=== PATIENT | female | born 1995 | race African-American/Black ===

== ENCOUNTER 2017-09-16 17:42 | Emergency (ER) | payer OTHER ==
[~2017-09-16] VITALS: Ht 165.1 cm; Wt 70.2 kg
[2017-09-16 17:58] VITALS: TEMP 36.7; Ht 165.1 cm; Wt 70.2 kg
[2017-09-16] MEDS ORDERED: SODIUM CHLORIDE 0.9% 1000ML 1,000 ML IV ONE (19:24)
[2017-09-16] MEDS ORDERED: SODIUM CHLORIDE 0.9% 1000ML 1,000 ML IV STA (19:24)
[2017-09-16] MEDS ORDERED: LEVO-95 PO (20:18)
[2017-09-16] MEDS ORDERED: TERB250T51 PO (20:18)
[2017-09-16 20:19] LABS: BASO % 0.4 %; BASO ABS # 0.02 K/uL (0-0.2); EOS % 3.1 %; EOS ABS # 0.15 K/uL (0-0.5); HEMOGLOBIN 13.7 g/dL (12.0-16.0); IG# 0.01 K/uL (0.00-0.02); LYMPH % 35.6 %; LYMPH ABS # 1.72 K/uL (1.2-3.4); MEAN CELL VOLUME 90.3 fL (80-100); MEAN CORPUSCULAR HEMOGLOBIN 29.5 pg (25-34); MEAN CORPUSCULAR HGB CONC 32.6 g/dl (32-36); MEAN PLATELET VOLUME 9.8 fL (7.4-10.4); MONO % 6.6 %; MONO ABS # 0.32 K/uL (0.11-0.59); NEUT % 54.1 %; NEUT ABS # 2.61 K/uL (1.4-6.5); PLATELET COUNT 222 K/uL (130-400); RED CELL DISTRIBUTION WIDTH CV 13.3 % (11.5-14.5); RED CELL DISTRIBUTION WIDTH SD 43.4 fL (36.4-46.3); WHITE BLOOD COUNT 4.83 K/uL (4.8-10.8)
[2017-09-16 20:39] LABS: ALBUMIN 3.9 gm/dl (3.4-5.0); ALT/SGPT 20 U/L (12-78); BLOOD UREA NITROGEN 8 mg/dl (7-18); CALCIUM 9.3 mg/dl (8.5-10.1); CARBON DIOXIDE 27 mmol/L (21-32); CREATININE 0.85 mg/dl (0.60-1.20); GLUCOSE 82 mg/dl (70-99); LIPASE 183 U/L (73-393); POTASSIUM 3.9 mmol/L (3.5-5.1); SODIUM 138 mmol/L (136-145)
[2017-09-16 20:42] LABS: ALKALINE PHOSPHATASE 70 U/L (45-117); AST/SGOT 17 U/L (15-37); TOTAL PROTEIN 8.1 gm/dl (6.4-8.2)
[2017-09-16 21:40] VITALS: BP 110/76; PULSE 62; O2SAT 98
--- NOTE | 2017-09-16 21:46 | EMERGENCY ROOM VISIT NOTE ---
History Report prepared by Yessy: Fe Osborne Under the Supervision of: Dr. Rell La M.D. First contact with patient: 19:12 Chief Complaint: VAGINAL BLEEDING Stated Complaint: EXTREMELY HEAVY BLEEDING FROM PERIOD History of Present Illness The patient is a 22 year old female who presents to the Emergency Room with complaints of persistent heavy vaginal bleeding starting 3 days ago. The patient is on LoSeasonique. She has been having breakthrough bleeding for the past 2-3 weeks. Her period week started 3 days ago and she has been having very heavy bleeding since. She is using 1 pad every 1-2 hours. She called her accounting office manager and was sent to the ED over concerns that she is losing too much blood. She notes that the breakthrough bleeding started a few days after she missed 1 dose. She has not missed any other doses. She is having some abdominal cramping for which she takes Aleve. She is passing lots of clots. She has back pain. She denies any urinary symptoms, lightheadedness, dizziness, leg pain, leg swelling, bruising, or bleeding elsewhere. The patient is a student. She has not been sexually active since July. She denies any chance of . She denies any trauma or injury. She denies any history of anemia. She was recently started on Lamisil for fungus on her head. She denies any other medical problems. Source of History: patient Onset: 3 days ago Position: other (vaginal) Symptom Intensity: 1 pad every 1-2 hours Quality: other (bleeding) Timing: other (persistent) Associated Symptoms: + abdominal pain, + back pain, No urinary symptoms Note: Pt denies lightheadedness, dizziness, leg pain/swelling, bruising, bleeding elsewhere. Review of Systems See HPI for pertinent positives & negatives. A total of 10 systems reviewed and were otherwise negative. Past Medical & Surgical Medical Problems: (1) No chronic problems Old medical records were reviewed. Nurse's notes were reviewed and I agree with. Family History No pertinent family history stated. Social History Smoking Status: Never Smoker Occupation Status: [employer] student Current/Historical Medications Scheduled Levonorgestrel-Ethinyl Estradi (Camrese Lo), 1 TAB PO DIRECTED Terbinafine Hcl (Lamisil), 250 MG PO DAILY Allergies Coded Allergies: No Known Allergies (Unverified , 09/16/17) Physical Exam Vital Signs Date Time Temp Pulse Resp B/P (MAP) Pulse Ox O2 Delivery O2 Flow Rate FiO2 09/16/17 21:40 62 16 110/76 98 09/16/17 20:48 74 18 118/69 100 Room Air 09/16/17 20:00 76 16 126/69 98 09/16/17 17:58 36.7 87 18 127/75 99 Room Air Physical Exam General: Non-ill appearing young female in no acute distress. HEENT: Normal cephalic atraumatic. Pupils are equal round and reactive to light. Extraocular movements are intact. Oropharynx is pink with moist mucous membranes. No swelling of the mouth lips or tongue. Neck: Supple with a midline trachea. No meningeal signs or stiffness, no JVD or bruits. No Stridor. Chest: Clear to auscultation bilaterally. No wheezes or rhonchi. No increased work of breathing. Heart: regular rate and rhythm. Abdomen: Soft nontender, nondistended without rebound guarding or rigidity. Extremities: No cyanosis clubbing or edema. No calf tenderness or assymetry Spine/Back. Non tender to palpation. No CVA tenderness Skin: Good turgor without rashes. Neurologic exam: Cranial nerves two through 12 are intact. Motor and sensation are intact and symmetrical throughout. Medical Decision & Procedures Laboratory Results 09/16/17 20:00 Red Blood Count 4.65, Mean Corpuscular Volume 90.3, Mean Corpuscular Hemoglobin 29.5, Mean Corpuscular Hemoglobin Concent 32.6, Mean Platelet Volume 9.8, Neutrophils (%) (Auto) 54.1, Lymphocytes (%) (Auto) 35.6, Monocytes (%) (Auto) 6.6, Eosinophils (%) (Auto) 3.1, Basophils (%) (Auto) 0.4, Neutrophils # (Auto) 2.61, Lymphocytes # (Auto) 1.72, Monocytes # (Auto) 0.32, Eosinophils # (Auto) 0.15, Basophils # (Auto) 0.02 09/16/17 20:00 Test 09/16/17 20:00 White Blood Count 4.83 K/uL (4.8-10.8) Red Blood Count 4.65 M/uL (4.2-5.4) Hemoglobin 13.7 g/dL (12.0-16.0) Hematocrit 42.0 % (37-47) Mean Corpuscular Volume 90.3 fL (80-100) Mean Corpuscular Hemoglobin 29.5 pg (25-34) Mean Corpuscular Hemoglobin Concent 32.6 g/dl (32-36) Platelet Count 222 K/uL (130-400) Mean Platelet Volume 9.8 fL (7.4-10.4) Neutrophils (%) (Auto) 54.1 % Lymphocytes (%) (Auto) 35.6 % Monocytes (%) (Auto) 6.6 % Eosinophils (%) (Auto) 3.1 % Basophils (%) (Auto) 0.4 % Neutrophils # (Auto) 2.61 K/uL (1.4-6.5) Lymphocytes # (Auto) 1.72 K/uL (1.2-3.4) Monocytes # (Auto) 0.32 K/uL (0.11-0.59) Eosinophils # (Auto) 0.15 K/uL (0-0.5) Basophils # (Auto) 0.02 K/uL (0-0.2) RDW Standard Deviation 43.4 fL (36.4-46.3) RDW Coefficient of Variation 13.3 % (11.5-14.5) Immature Granulocyte % (Auto) 0.2 % Immature Granulocyte # (Auto) 0.01 K/uL (0.00-0.02) Anion Gap 6.0 mmol/L (3-11) Est Creatinine Clear Calc Drug Dose 102.9 ml/min Estimated GFR () 113.5 Estimated GFR (Non- 97.9 BUN/Creatinine Ratio 9.8 (10-20) Calcium Level 9.3 mg/dl (8.5-10.1) Total Bilirubin 0.4 mg/dl (0.2-1) Direct Bilirubin < 0.1 mg/dl (0-0.2) Aspartate Amino Transf (AST/SGOT) 17 U/L (15-37) Alanine Aminotransferase (ALT/SGPT) 20 U/L (12-78) Alkaline Phosphatase 70 U/L (45-117) Total Protein 8.1 gm/dl (6.4-8.2) Albumin 3.9 gm/dl (3.4-5.0) Lipase 183 U/L (73-393) Human Chorionic Gonadotropin, Qual NEG (NEG) Laboratory studies as stated above per my review. Medications Administered Medications (Trade) Dose Ordered Sig/Eneida Route Start Time Stop Time Status Last Admin Dose Admin Sodium Chloride 1,000 ml @ 999 mls/hr Q1H1M STAT IV 09/16/17 19:24 09/16/17 20:24 DC 09/16/17 20:10 999 MLS/HR Sodium Chloride 1,000 ml @ 150 mls/hr Q6H40M ONCE IV 09/16/17 19:24 09/16/17 22:05 DC 09/16/17 20:11 150 MLS/HR ED Course 1920: Past medical records reviewed. The patient was evaluated in room B3B, and a complete history and physical examination were performed. 1923: NSS 1000 ml @ 150 mls/hr IV, NSS 1000 ml @ 999 mls/hr IV. 2117: I reevaluated the patient. She is resting comfortably. I updated her on the results. 2122: I discussed the patient's case with Dr. Turner, [facility]. She agrees with follow up as an outpatient. 2126: Upon reevaluation, the patient is resting comfortably. I discussed the results and treatment plan with her. She verbalized agreement of the treatment plan. The patient was discharged home. Medical Decision Differentials include, but are not limited to; vaginal bleeding, breakthrough bleeding, ectopic , infection. This patient comes in as described above she is on oral contraceptives. She has been having vaginal bleeding for last 3 days has been heavy at times. She denies . She has no vaginal discharge or significant pain. She looks well on exam and is normotensive and not tachycardic. IV access was established and was hydrated with IV normal salin. E blood work was obtained. She has no electrolyte or metabolic abnormalities. She is not . Her hemoglobin is well within normal limits at 13. She feels good and would like to go home. She did miss one dose of her oral contraceptives with the last week or so and this could have caused some breakthrough bleeding. I discussed case Dr. Turner, who agrees, and the patient should follow-up with [facility] in the next 1-2 days for recheck or return if: increasing pain or bleeding lightheadedness or dizziness, worsening symptoms, any new problems or concerns. She was s happy to plan discharge to home. Medication Reconcilliation Current Medication List: was personally reviewed by me Blood Pressure Screening Patient's blood pressure: Normal blood pressure Blood pressure disposition: Did not require urgent referral Consults Time Called: 2117 Consulting Physician: Dr. Turner, [facility] Returned Call: 2122 I discussed the patient's case with her. She agrees with follow up as an outpatient. Impression Primary Impression: Vaginal bleeding Scribe Attestation The scribe's documentation has been prepared under my direction and personally reviewed by me in its entirety. I confirm that the note above accurately reflects all work, treatment, procedures, and medical decision making performed by me. Departure Information Dispostion Home / Self-Care Referrals No Doctor, Assigned (PCP) Forms HOME CARE DOCUMENTATION FORM, IMPORTANT VISIT INFORMATION, WORK / SCHOOL INSTRUCTIONS Patient Instructions My [facility] Additional Instructions Rest Drink plenty of fluids Make sure you take your pills as directed. Return if: Worsening of symptoms, increasing bleeding, lightheadedness or dizziness, any new problems or concerns Get rechecked at [facility] [place] [place] in 1-2 days
== END 2017-09-16 21:41 | disposition home or self-care (01) ==
LOC: C.EDB 17:44
DX: N93.9 Abnormal uterine and vaginal bleeding, unspecified (principal)